=== PATIENT | female | born 1975 | race Two or more races ===

== ENCOUNTER 2021-09-08 12:30 | Inpatient (IN) | payer OTHER ==
[~2021-09-08] VITALS: Ht 167.6 cm; Wt 84.4 kg
[2021-09-09] MEDS ORDERED: LEVOXYL125 MCG PO (12:34)
[2021-09-09] MEDS ORDERED: FUSION CAPSULE1 EACH PO (12:35)
== END 2021-09-15 16:21 | disposition home or self-care (01) | DRG 743 ==
LOC: OB/GYN 09-14 07:00 → O/R 09-14 08:44 → OB/GYN 09-14 11:30
PROVIDERS: ADMIT Obstetrics & Gynecology; ATTEND Obstetrics & Gynecology
PROC: 0UT74ZZ Resection of Bilateral Fallopian Tubes, Percutaneous Endoscopic Approach (ICD-10-PCS; 2021-09-14)
PROC: 0UT24ZZ Resection of Bilateral Ovaries, Percutaneous Endoscopic Approach (ICD-10-PCS; 2021-09-14)
PROC: 0UT94ZZ Resection of Uterus, Percutaneous Endoscopic Approach (ICD-10-PCS; principal; 2021-09-14 07:00)
DX: D25.1 Intramural leiomyoma of uterus (principal); D25.2 Subserosal leiomyoma of uterus; N84.0 Polyp of corpus uteri; N72 Inflammatory disease of cervix uteri; Z20.822 Contact with and (suspected) exposure to COVID-19